=== PATIENT | male | born 1970 | race African-American/Black ===

== ENCOUNTER 2024-03-29 13:22 | Emergency (ER) | payer OTHER, SELFPAY ==
[~2024-03-29] VITALS: Ht 177.8 cm; Wt 63.5 kg
[2024-03-29] MEDS: ASPIRIN 81MG CHEW TABLET PO ONE (14:36)
[2024-03-29] MEDS: LABETALOL 100MG/20ML VIAL IV STA ×3 (14:36→20:38)
[2024-03-29 14:54] LABS: BASO % 0.5 % (0.0-1.0); EOS # 0.1 10^3/uL (0.0-0.5); EOS % 0.9 % (0.0-3.0); HEMATOCRIT 48.8 % (42.0-52.0); LYMPH # 0.8 10^3/uL (1.5-5.0); LYMPH % 9.5 % (24.0-44.0); MEAN CORPUSCULAR HEMOGLOBIN 33.3 pg (27.0-33.0); MEAN CORPUSCULAR HGB CONC 34.8 g/dl (32.0-36.5); MEAN CORPUSCULAR VOLUME 95.7 fl (80.0-96.0); MONO # 0.8 10^3/uL (0.0-0.8); MONO % 9.9 % (2.0-8.0); NEUTROPHILS # 6.3 10^3/uL (1.5-8.5); PLATELET COUNT, AUTOMATED 276 10^3/uL (150-450)
[2024-03-29 15:07] LABS: INR 1.11
[2024-03-29 15:15] LABS: CK-MB VALUE MASS 1.5 NG/ML (<3.6)
[2024-03-29 15:18] LABS: ALBUMIN 3.3 G/DL (3.2-5.2); ALKALINE PHOSPHATASE 113 U/L (46-116); ALT/SGPT 16 U/L (7.0-40); AST/SGOT 12 U/L (<34); BILIRUBIN,DIRECT 0.5 MG/DL (<0.4); BILIRUBIN,TOTAL 1.4 MG/DL (0.3-1.2); BLOOD UREA NITROGEN 15 MG/DL (9-23); CALCIUM LEVEL 9.4 MG/DL (8.5-10.1); CARBON DIOXIDE LEVEL 27 MMOL/L (20-31); CHLORIDE LEVEL 106 MMOL/L (98-107); GLOMERULAR FILTRATION RATE > 60.0 (>56); GLUCOSE, FASTING 196 MG/DL (60-100); MAGNESIUM LEVEL 1.9 MG/DL (1.8-2.4); PHOSPHORUS LEVEL 3.5 MG/DL (2.5-4.9); POTASSIUM SERUM 4.3 MMOL/L (3.5-5.1); SODIUM LEVEL 140 MMOL/L (136-145); TOTAL PROTEIN 7.3 G/DL (5.7-8.2)
[2024-03-29 15:19] LABS: FREE T4 1.09 NG/DL (0.89-1.76)
[2024-03-29 15:20] LABS: THYROID STIMULATING HORMONE 0.494 uIU/ML (0.55-4.78)
[2024-03-29 15:28] LABS: CPK CREATINE PHOSPHOKINASE 72 U/L (46-171); MB/CK RELATIVE INDEX 2.08 (< OR =4)
[2024-03-29] MEDS: HEPARIN SOD (PORCINE) 5000UNITS/ML 1ML VIAL/SYRINGE IV ONE (16:17)
[2024-03-29] MEDS: HEPARIN DRIP 25,000 UNITS in IV 1 EA IV SCH (16:19)
[2024-03-29] MEDS: CLOPIDOGREL 300 MG TAB (PLAVIX) PO ONE (16:20)
[2024-03-29] MEDS: niCARdipine IV 40 MG in IV 1 EA IV SCH (16:32)
[2024-03-29] MEDS: CARVedilol 6.25 MG TAB PO ONE ×2 (17:59→20:37)
[2024-03-29] MEDS ORDERED: HOME MED LIST COMPLETE! XX SCH (18:20)
[2024-03-29 20:29] VITALS: O2SAT 99
[2024-03-29 20:38] VITALS: BP 170/104
[2024-03-29 20:47] VITALS: BP 161/95; TEMP 97.6
== END 2024-03-29 20:54 | disposition short-term general hospital (02) ==
LOC: M ED 13:22
DX: I16.0 Hypertensive urgency (principal); I24.9 Acute ischemic heart disease, unspecified; I25.2 Old myocardial infarction; I10 Essential (primary) hypertension; Z88.7 Allergy status to serum and vaccine
CPT/HCPCS: 71045; 80048; 80076; 82550; 82553; 83735; 84100; 84439; 84443; 84484; 85025; 85610; 85730; 93005; 93041; 94760; 96365; 96374; 96375; 99285; J1920